=== PATIENT | female | born 1980 | race Caucasian/White ===

== ENCOUNTER 2021-07-20 19:59 | Emergency (ER) | payer MEDICARE ==
[2021-07-20 20:08] VITALS: TEMP 98.2
[2021-07-20] MEDS ORDERED: NITROGLYCERIN SL TABS 0.4 MG TAB SUBLINGUAL STA (21:23)
[2021-07-20] MEDS ORDERED: ASPIRIN 81 MG PO STA (21:23)
[2021-07-20] MEDS ORDERED: SODIUM CHLORIDE 0.9% 1,000 ML IV STA (21:23)
--- NOTE | 2021-07-20 21:29 | ED ---
General Adult HPI - General Chief complaint: Chest Pain Stated complaint: Chest Pain Time Seen by Provider: 07/20/21 21:15 Source: patient, RN notes reviewed, old records reviewed Mode of arrival: ambulatory - History of Present Illness Initial comments: 40-year-old female presents emergency room with 1 week of left-sided chest pain. Patient states that the pain is constant and she has never had relief. She did get diaphoretic at one point. Denies any nausea vomiting diarrhea or fevers. No sick contacts. No cough or difficulty in breathing. Patient states that the pain started on she did go to [facility] and had EKG and x-ray done and was discharged home to follow up with insulation cutter and former. Patient states that the pain never went away she went back to [facility] on July 16 and waited for 12 hours and was not seen. She states that she came here today as the pain started to radiate down her left arm. She states that she has tried ice and heat along with Tylenol and Motrin with no relief. She does have a family history of heart disease. She is a nonsmoker. She denies any medical history, no medicines on a daily basis. -: days(s) (7) Location: chest Radiation: extremity (left arm), distal Severity scale (1-10): 10 Consistency: constant Improves with: none Worsens with: none Associated Symptoms: denies other symptoms Treatments Prior to Arrival: none - Related Data Home Medications Medication Instructions Recorded Confirmed No Known Home Medications 07/20/21 07/20/21 Allergies Allergy/AdvReac Type Severity Reaction Status Date / Time gabapentin Allergy Itching Verified 07/20/21 21:52 hydromorphone [From Dilaudid] Allergy Rash/Hives Verified 07/20/21 21:52 Penicillins Allergy Rash/Hives Verified 07/20/21 21:52 Review of Systems ROS Statement: Those systems with pertinent positive or pertinent negative responses have been documented in the HPI. ROS Other: All systems not noted in ROS Statement are negative. Past Medical History Past Medical History: No Reported History History of Any Multi-Drug Resistant Organisms: None Reported Past Surgical History: Appendectomy, Hysterectomy Additional Past Surgical History / Comment(s): bilateral masectomy Past Psychological History: Anxiety, Depression Smoking Status: Never smoker Past Alcohol Use History: None Reported Past Drug Use History: None Reported General Exam General appearance: alert, in no apparent distress Head exam: Present: atraumatic, normocephalic Eye exam: Present: normal appearance, PERRL, EOMI, conjunctival injection (Patient states irritation from her contact lenses) Pupils: Present: normal accommodation ENT exam: Present: mucous membranes moist Neck exam: Present: full ROM. Absent: tenderness, meningismus Respiratory exam: Present: normal lung sounds bilaterally. Absent: respiratory distress, accessory muscle use Cardiovascular Exam: Present: regular rate, normal rhythm, normal heart sounds GI/Abdominal exam: Present: soft. Absent: distended, tenderness Extremities exam: Present: normal capillary refill. Absent: pedal edema Back exam: Present: normal inspection, full ROM. Absent: tenderness, CVA tenderness (R), CVA tenderness (L), rash noted Neurological exam: Present: alert, oriented X3, normal gait Psychiatric exam: Present: normal affect, normal mood Skin exam: Present: warm, dry, intact, normal color. Absent: cyanosis, diaphoretic, petechiae, pallor Course Vital Signs 07/20/21 07/20/21 07/20/21 20:04 21:42 21:53 Temperature 98.2 F Pulse Rate 90 87 Pulse Rate [ 84 Bilateral Sitting Radial] Respiratory 20 16 Rate Blood Pressure 145/92 124/83 O2 Sat by Pulse 97 95 Oximetry 07/20/21 22:00 Temperature Pulse Rate 81 Pulse Rate [ Bilateral Sitting Radial] Respiratory 16 Rate Blood Pressure 115/83 O2 Sat by Pulse 95 Oximetry - Reevaluation(s) Reevaluation #1: 07/20/21 22:52 Patient states that she had no pain relief with nitroglycerin and aspirin. Time: 22:52 EKG Findings - EKG Results: EKG: sinus rhythm (Ventricular rate of 82, ID interval 0.185, QRS 0.90, QTC 0.408) Medical Decision Making - Medical Decision Making Troponin is negative at 0.012, EKG shows sinus rhythm no ST elevation. D-dimer is negative. Electrolytes are unremarkable. There is no evidence of le ukocytosis. Chest x-ray negative for any acute cardiopulmonary process. Patient has no cardiac risk factors, HEART score is low. She was given aspirin and nitro with no relief. She did get some relief with the Toradol. Medical records were obtained from [facility] showing troponins 2 negative. D-dimer negative. Chest x-ray was clear. EKG showed sinus tachycardia with a rate of 101. Patient was admitted to the hospital for serial troponins, stress test and echocardiogram. Patient signed out AGAINST MEDICAL ADVICE prior to testing per the medical record. I did offer patient admission today with cardiac consult and she declined stating that she will follow up with her primary care doctor. Patient states that her questions have been answered and she does feel more comfortable being discharged today. Vital signs are stable. Patient was directed to return to the emergency room with any new or concerning symptoms. Case discussed with Dr. Palacios. - Lab Data Result diagrams: 07/20/21 21:23 07/20/21 21:23 Lab Results 07/20/21 07/20/21 07/20/21 Range/Units 21:23 21:23 21:23 WBC 6.8 (3.8-10.6) k/uL RBC 4.82 (3.80-5.40) m/uL Hgb 14.4 (11.4-16.0) gm/dL Hct 42.7 (34.0-46.0) % MCV 88.6 (80.0-100.0) fL MCH 29.8 (25.0-35.0) pg MCHC 33.6 (31.0-37.0) g/dL RDW 14.5 (11.5-15.5) % Plt Count 322 (150-450) k/uL MPV 7.6 Neutrophils % 51 % Lymphocytes % 37 % Monocytes % 5 % Eosinophils % 4 % Basophils % 1 % Neutrophils # 3.4 (1.3-7.7) k/uL Lymphocytes # 2.5 (1.0-4.8) k/uL Monocytes # 0.3 (0-1.0) k/uL Eosinophils # 0.2 (0-0.7) k/uL Basophils # 0.1 (0-0.2) k/uL PT 10.1 (9.0-12.0) sec INR 0.9 (<1.2) APTT 24.5 (22.0-30.0) sec D-Dimer 0.47 (<0.60) mg/L FEU Sodium 141 (137-145) mmol/L Potassium 3.9 (3.5-5.1) mmol/L Chloride 104 (98-107) mmol/L Carbon Dioxide 25 (22-30) mmol/L Anion Gap 12 mmol/L BUN 22 H (7-17) mg/dL Creatinine 0.98 (0.52-1.04) mg/dL Est GFR (CKD-EPI)AfAm 84 (>60 ml/min/1.73 sqM) Est GFR (CKD-EPI)NonAf 73 (>60 ml/min/1.73 sqM) Glucose 97 (74-99) mg/dL Calcium 10.0 (8.4-10.2) mg/dL Magnesium 2.2 (1.6-2.3) mg/dL Total Bilirubin 0.3 (0.2-1.3) mg/dL AST 25 (14-36) U/L ALT 27 (4-34) U/L Alkaline Phosphatase 97 (38-126) U/L Troponin I (0.000-0.034) ng/mL Total Protein 7.8 (6.3-8.2) g/dL Albumin 4.6 (3.5-5.0) g/dL /08/05 Range/Units 21:23 WBC (3.8-10.6) k/uL RBC (3.80-5.40) m/uL Hgb (11.4-16.0) gm/dL Hct (34.0-46.0) % MCV (80.0-100.0) fL MCH (25.0-35.0) pg MCHC (31.0-37.0) g/dL RDW (11.5-15.5) % Plt Count (150-450) k/uL MPV Neutrophils % % Lymphocytes % % Monocytes % % Eosinophils % % Basophils % % Neutrophils # (1.3-7.7) k/uL Lymphocytes # (1.0-4.8) k/uL Monocytes # (0-1.0) k/uL Eosinophils # (0-0.7) k/uL Basophils # (0-0.2) k/uL PT (9.0-12.0) sec INR (<1.2) APTT (22.0-30.0) sec D-Dimer (<0.60) mg/L FEU Sodium (137-145) mmol/L Potassium (3.5-5.1) mmol/L Chloride (98-107) mmol/L Carbon Dioxide (22-30) mmol/L Anion Gap mmol/L BUN (7-17) mg/dL Creatinine (0.52-1.04) mg/dL Est GFR (CKD-EPI)AfAm (>60 ml/min/1.73 sqM) Est GFR (CKD-EPI)NonAf (>60 ml/min/1.73 sqM) Glucose (74-99) mg/dL Calcium (8.4-10.2) mg/dL Magnesium (1.6-2.3) mg/dL Total Bilirubin (0.2-1.3) mg/dL AST (14-36) U/L ALT (4-34) U/L Alkaline Phosphatase (38-126) U/L Troponin I <0.012 (0.000-0.034) ng/mL Total Protein (6.3-8.2) g/dL Albumin (3.5-5.0) g/dL Disposition Clinical Impression: Chest pain Disposition: HOME SELF-CARE Condition: Fair Instructions (If sedation given, give patient instructions): Chest Pain (ED) Additional Instructions: You have been offered admission to the hospital and declined at this time. Please follow-up with your primary care doctor and insulation cutter and former for continuation of care. You may need a cardiac echo. Return to the emergency room with any new or concerning symptoms including increased pain or shortness of breath. You can take Tylenol and or Motrin as needed for pain. Since your pain was slig htly relieved with Toradol, Motrin may be a better option for you. Keep a diary of your symptoms including how long they last, when they occurred and what you were doing when the pain presented. Is patient prescribed a controlled substance at d/c from ED?: No Referrals: DELMA WATTERS DO [Primary Care Provider] - 1-2 days Frandy Jaime DO [STAFF PHYSICIAN] - 1-2 days Time of Disposition: 23:53
[2021-07-20 22:12] VITALS: RESP 16
[2021-07-20 22:23] LABS: Basophils # (A) 0.1 k/uL (0-0.2); Basophils % (A) 1 %; Eosinophils # (A) 0.2 k/uL (0-0.7); Eosinophils % (A) 4 %; HCT 42.7 % (34.0-46.0); HGB 14.4 gm/dL (11.4-16.0); Lymphocytes # (A) 2.5 k/uL (1.0-4.8); Lymphocytes % (A) 37 %; MCH 29.8 pg (25.0-35.0); MCHC 33.6 g/dL (31.0-37.0); MCV 88.6 fL (80.0-100.0); Mean Platelet Volume 7.6; Monocytes # (A) 0.3 k/uL (0-1.0); Monocytes % (A) 5 %; Neutrophils # (A) 3.4 k/uL (1.3-7.7); Neutrophils % (A) 51 %; Platelet Count 322 k/uL (150-450); RBC 4.82 m/uL (3.80-5.40); RDW 14.5 % (11.5-15.5); WBC 6.8 k/uL (3.8-10.6)
[2021-07-20 22:39] LABS: INR 0.9 (<1.2); Partial Thromboplastin Time 24.5 sec (22.0-30.0); Prothrombin Time 10.1 sec (9.0-12.0)
[2021-07-20 22:45] LABS: Albumin 4.6 g/dL (3.5-5.0); Magnesium 2.2 mg/dL (1.6-2.3); Potassium 3.9 mmol/L (3.5-5.1); Total Bilirubin 0.3 mg/dL (0.2-1.3); Total Protein 7.8 g/dL (6.3-8.2)
[2021-07-20] MEDS ORDERED: KETOROLAC 15 MG/ML 1 ML VIAL IVP STA (22:51)
--- NOTE | 2021-07-20 23:25 | XR ---
EXAMINATION TYPE: XR chest 2V DATE OF EXAM: 07/20/2021 COMPARISON: NONE HISTORY: Chest pain TECHNIQUE: 2 views FINDINGS: Heart and mediastinum are normal. Lungs are clear. Diaphragm is normal. Bony thorax appears normal. There are chest leads. IMPRESSION: Normal chest
[2021-07-21 00:32] VITALS: BP 136/83; PULSE 80
== END 2021-07-21 00:18 | disposition home or self-care (01) ==
LOC: EC 19:59
DX: R07.89 Other chest pain (principal); Z88.0 Allergy status to penicillin; Z88.5 Allergy status to narcotic agent
CPT/HCPCS: 36415; 93005; 85379; 80053; 83735; 84484; 85025; 85610; 85730; 71046; 96374; 96361; 99285; J1885

== ENCOUNTER 2021-08-25 18:47 | Emergency (ER) | payer MEDICARE ==
[2021-08-25 21:21] VITALS: RESP 18
[2021-08-25] MEDS ORDERED: methylPREDNISolone SOD SUCCI 125 MG/2 ML VIAL IM ONE (21:44)
[2021-08-25] MEDS ORDERED: ORPHENADRINE 30 MG/ML 2 ML VIAL IM STA (21:44)
[2021-08-25] MEDS ORDERED: MORPHINE SULFATE 4 MG/ML SYRINGE IM STA (21:46)
--- NOTE | 2021-08-25 22:33 | XR ---
EXAMINATION TYPE: XR thoracic spine 2V DATE OF EXAM: 08/25/2021 COMPARISON: NONE HISTORY: Back pain TECHNIQUE: 3 view FINDINGS: Vertebral abnormal alignment. Posterior elements are intact. There is no paraspinal mass. D isc spaces are fairly normal. No compression fracture. IMPRESSION: Negative thoracic spine exam. No fracture.
--- NOTE | 2021-08-25 22:33 | XR ---
EXAMINATION TYPE: XR cervical spine comp DATE OF EXAM: 08/25/2021 COMPARISON: NONE HISTORY: Back pain TECHNIQUE: 5 views FINDINGS: Normal alignment. There is plate with screws fusing anteriorly the cervical spine at C5-6. There is a nterior spurring at C4-5. Posterior elements are intact. Neural foramina are widely patent. Atlantoax ial facet joint is normal. There are no cervical ribs. IMPRESSION: Anterior fusion surgery. No acute abnormality of the cervical spine. No fracture.
--- NOTE | 2021-08-25 22:35 | XR ---
EXAMINATION TYPE: XR lumbar spine 2 or 3V DATE OF EXAM: 08/25/2021 COMPARISON: NONE HISTORY: Back pain TECHNIQUE: 3 views FINDINGS: Lumbar vertebrae have normal spacing and alignment. Posterior elements are intact. Sacroili ac joints are intact. IMPRESSION: Negative lumbar spine exam
[2021-08-25] MEDS ORDERED: ACET/COD 300 MG/30 MG STARTER PACK 6 TAB BTL PO STA (22:57)
--- NOTE | 2021-08-25 23:00 | ED ---
Neck Injury/Pain HPI - General Chief Complaint: Neck Pain/Injury Stated Complaint: Neck pain Time Seen by Provider: 08/25/21 21:25 Mode of arrival: ambulatory - History of Present Illness Initial Comments: Patient is a 5-year-old female who presents to the emergency department with a chief complaint of neck and upper/middle back pain. Patient states the symptoms started 2 weeks ago when she woke up in the morning. Patient denies injury. Patient states the bones of her neck, upper, middle back hurt. She reports pain and numbness down both of the legs despite no lower back pain. Denies leg weakness. Denies numbness and tingling in the groin and buttock region. Denies loss of bowel or bladder function. Patient states she has been taking ibuprofen and Tylenol without relief. She denies fever, chills, shortness of breath, chest pain, recent weight loss, and history of cancer. - Related Data Previous Rx's Medication Instructions Recorded Cyclobenzaprine [Flexeril] 10 mg PO TID PRN #15 tab 08/25/21 HYDROcodone/APAP 7.5-325MG [[place] 1 tab PO Q4HR PRN 3 Days #18 tab 08/25/21 7.5-325] Lidocaine 5% Patch [Lidoderm 5% 1 patch TOPICAL DAILY 7 Days #7 08/25/21 Patch] patch predniSONE 50 mg PO DAILY #5 tab 08/25/21 Allergies Allergy/AdvReac Type Severity Reaction Status Date / Time gabapentin Allergy Itching Verified 08/25/21 21:21 hydromorphone [From Dilaudid] Allergy Rash/Hives Verified 08/25/21 21:21 Penicillins Allergy Rash/Hives Verified 08/25/21 21:21 Review of Systems ROS Statement: Those systems with pertinent positive or pertinent negative responses have been documented in the HPI. ROS Other: All systems not noted in ROS Statement are negative. Past Medical History Past Medical History: No Reported History History of Any Multi-Drug Resistant Organisms: None Reported Past Surgical History: Appendectomy, Hysterectomy Additional Past Surgical History / Comment(s): bilateral masectomy Past Psychological History: Anxiety, Depression Smoking Status: Never smoker Past Alcohol Use History: None Reported Past Drug Use History: None Reported General Exam General appearance: alert, in no apparent distress Head exam: Present: atraumatic, normocephalic, normal inspection Eye exam: Present: normal appearance, PERRL, EOMI. Absent: scleral icterus, conjunctival injection, periorbital swelling Respiratory exam: Present: normal lung sounds bilaterally. Absent: respiratory distress, wheezes, rales, rhonchi, stridor Cardiovascular Exam: Present: regular rate, normal rhythm, normal heart sounds. Absent: systolic murmur, diastolic murmur, rubs, gallop, clicks Back exam: Present: normal inspection, full ROM, vertebral tenderness (cervical and thoracic ). Absent: muscle spasm, paraspinal tenderness Neurological exam: Present: alert, oriented X3, CN II-XII intact Psychiatric exam: Present: normal affect, normal mood Course Vital Signs 08/25/21 08/25/21 21:16 23:16 Temperature 97.9 F 97.8 F Pulse Rate 88 83 Respiratory 18 18 Rate Blood Pressure 149/104 137/92 O2 Sat by Pulse 99 99 Oximetry Medical Decision Making - Medical Decision Making This is a 41-year-old female who presents for evaluation of back pain. Thorough history and examination were performed. There is no evidence of neurological deficit on my physical exam. There is tenderness of the cervical and thoracic vertebrae with no overlying abnormalities. Pain controlled in the emergency department. Cervical, thoracic, lumbar x-ray are negative for acute process. Without lower back pain it is odd for patient to experience radicular symptoms however I will send patient home on prednisone as well as pain medication. Patient will need to follow up with her primary care provider in one to 2 days for further evaluation of her pain. Return parameters discussed. Patient verbalizes understanding and is agreeable to this plan. Dr. Rodriguez is my attending. Disposition Clinical Impression: Neck pain, Back pain, Radicular pain of both lower extremities Disposition: HOME SELF-CARE Condition: Good Instructions (If sedation given, give patient instructions): Back Pain (ED), Acute Neck Pain (ED) Additional Instructions: Please take medication as directed. He may take the Tylenol 3 tonight. Next dose is at 2:30 AM. Do not take Tylenol 3 and [place] together. Do not drink alcohol or operate machinery while taking Flexeril as it can make you sleepy. Follow-up with primary care provider in one to 2 days. Return to the emergency department if you experience new, concerning, or worsening symptoms. Prescriptions: Cyclobenzaprine [Flexeril] 10 mg PO TID PRN #15 tab PRN Reason: Muscle Spasm Lidocaine 5% Patch [Lidoderm 5% Patch] 1 patch TOPICAL DAILY 7 Days #7 patch HYDROcodone/APAP 7.5-325MG [[place] 7.5-325] 1 tab PO Q4HR PRN 3 Days #18 tab PRN Reason: Pain predniSONE 50 mg PO DAILY #5 tab Is patient prescribed a controlled substance at d/c from ED?: Yes If prescribed controlled substance>3 days was MAPS reviewed?: Yes Referrals: DELMA WATTERS DO [Primary Care Provider] - 1-2 days Time of Disposition: 23:00
[2021-08-25 23:17] VITALS: BP 137/92; PULSE 83; TEMP 97.8
== END 2021-08-25 23:16 | disposition home or self-care (01) ==
LOC: EC 18:47
DX: M54.2 Cervicalgia (principal); M54.9 Dorsalgia, unspecified; Z88.0 Allergy status to penicillin; Z88.5 Allergy status to narcotic agent
CPT/HCPCS: 72070; 72050; 72100; 99283; 96372; J2270; J2360; J2930

== ENCOUNTER 2022-07-13 22:03 | Emergency (ER) | payer MEDICARE ==
[2022-07-13 22:14] VITALS: BP 143/87; PULSE 79; RESP 18; TEMP 97.5
[2022-07-13 22:36] LABS: Basophils # (A) 0.1 k/uL (0-0.2); Basophils % (A) 1 %; Eosinophils # (A) 0.1 k/uL (0-0.7); Eosinophils % (A) 1 %; HCT 38.6 % (34.0-46.0); HGB 13.2 gm/dL (11.4-16.0); Lymphocytes # (A) 3.1 k/uL (1.0-4.8); Lymphocytes % (A) 40 %; MCHC 34.3 g/dL (31.0-37.0); MCV 87.6 fL (80.0-100.0); Mean Platelet Volume 7.7; Monocytes # (A) 0.4 k/uL (0-1.0); Monocytes % (A) 5 %; Neutrophils # (A) 4.1 k/uL (1.3-7.7); Neutrophils % (A) 52 %; Platelet Count 266 k/uL (150-450); RBC 4.41 m/uL (3.80-5.40); RDW 14.2 % (11.5-15.5); WBC 7.8 k/uL (3.8-10.6)
[2022-07-13 22:48] LABS: ALT 24 U/L (4-34); AST 23 U/L (14-36); African American GFR (CKD) >90 (>60 ml/min/1.73 sqM); Albumin 4.3 g/dL (3.5-5.0); Alkaline Phosphatase 76 U/L (38-126); Anion Gap 9 mmol/L; Blood Urea Nitrogen 22 mg/dL (7-17); Carbon Dioxide 26 mmol/L (22-30); Chloride 105 mmol/L (98-107); Glucose 100 mg/dL (74-99); Non-African American GFR(CKD) 86 (>60 ml/min/1.73 sqM); Potassium 3.6 mmol/L (3.5-5.1); Sodium 140 mmol/L (137-145); Total Bilirubin 0.3 mg/dL (0.2-1.3); Total Protein 7.2 g/dL (6.3-8.2)
--- NOTE | 2022-07-13 23:14 | ED ---
Chest Pain HPI - General Chief Complaint: Chest Pain Stated Complaint: CHEST PAIN Time Seen by Provider: 07/13/22 23:10 Source: patient, RN notes reviewed Mode of arrival: ambulatory Limitations: no limitations - History of Present Illness Initial Comments: This is a 41-year-old female who presents to the emergency department for chest pain. States that this is left-sided. Describes this as sharp and stabbing in nature with radiation down the left arm. Denies any shortness of breath. Also denies any history of cardiac problems or similar symptoms in the past. Patient eloped from the emergency department prior to completion and review of the ordered testing. MD Complaint: chest pain - Related Data Previous Rx's Medication Instructions Recorded Cyclobenzaprine [Flexeril] 10 mg PO TID PRN #15 tab 08/25/21 HYDROcodone/APAP 7.5-325MG [[place] 1 tab PO Q4HR PRN 3 Days #18 tab 08/25/21 7.5-325] Lidocaine 5% Patch [Lidoderm 5% 1 patch TOPICAL DAILY 7 Days #7 08/25/21 Patch] patch predniSONE 50 mg PO DAILY #5 tab 08/25/21 Allergies Allergy/AdvReac Type Severity Reaction Status Date / Time gabapentin Allergy Itching Verified 07/13/22 22:11 hydromorphone [From Dilaudid] Allergy Rash/Hives Verified 07/13/22 22:11 Penicillins Allergy Rash/Hives Verified 07/13/22 22:11 Review of Systems ROS Statement: Those systems with pertinent positive or pertinent negative responses have been documented in the HPI. ROS Other: All systems not noted in ROS Statement are negative. Past Medical History Past Medical History: No Reported History History of Any Multi-Drug Resistant Organisms: None Reported Past Surgical History: Appendectomy, Hysterectomy Additional Past Surgical History / Comment(s): bilateral masectomy Past Psychological History: Anxiety, Depression Smoking Status: Never smoker Past Alcohol Use History: None Reported Past Drug Use History: None Reported General Exam - General Exam Comments Initial Comments: Visual Physical Exam Vital signs reviewed General: Well-appearing, nontoxic, no acute distress. Head: Normocephalic, atraumatic Eyes: PERRLA, EOMI ENT: Airway patent Chest: Nonlabored breathing Skin: No visual rash, normal skin tone Neuro: Alert and oriented 3 Musculoskeletal: No gross abnormalities Limitations: no limitations Course Vital Signs 07/13/22 22:12 Temperature 97.5 F L Pulse Rate 79 Respiratory 18 Rate Blood Pressure 143/87 O2 Sat by Pulse 98 Oximetry Disposition Clinical Impression: Chest pain Disposition: LEFT AGAINST MEDICAL ADVICE Referrals: DELMA WATTERS DO [Primary Care Provider] - 1-2 days
--- NOTE | 2022-07-13 23:24 | XR ---
EXAMINATION TYPE: XR chest 2V DATE OF EXAM: 07/13/2022 COMPARISON: 07/20/2021 INDICATION: Chest pain TECHNIQUE: Frontal and lateral views of the chest are obtained. FINDINGS: The heart size is normal. The pulmonary vasculature is normal. The lungs are clear. IMPRESSION: 1. No acute pulmonary process.
[2022-07-13 23:29] LABS: Partial Thromboplastin Time 23.6 sec (22.0-30.0); Prothrombin Time 10.3 sec (9.0-12.0)
== END 2022-07-14 02:13 | disposition left against medical advice (07) ==
LOC: EC 22:03
DX: R07.89 Other chest pain (principal); Z88.0 Allergy status to penicillin; Z88.5 Allergy status to narcotic agent; Z86.59 Personal history of other mental and behavioral disorders; Z53.29 Procedure and treatment not carried out because of patient's decision for other reasons
CPT/HCPCS: 36415; 71046; 80053; 84484; 85025; 85610; 85730; 93005; 99285